=== PATIENT | male | born 1960 | race Caucasian/White ===

== ENCOUNTER 2017-08-07 19:55 | Emergency (ER) | payer BC, MEDICAID, OTHER ==
[~2017-08-07 19:55] MED LIST: AMIO200 PO; CIPR500T4 PO; CLIN1CAP6 PO; CLOP75 PO; CYCL-36 PO; ENAL2.5 PO; FURO1TAB93 PO; METO25 PO; NOVO7030P2 SQ; POTA20IN2 PO; ULTR50TA PO; ZOCO40TA PO
[2017-08-07 20:15] VITALS: BP 105/54; PULSE 77; RESP 18; TEMP 98.9; O2SAT 89
--- NOTE | 2017-08-07 22:16 | PD ---
HPI Chief Complaint: Edema Time Seen by Provider: 21:57 Travel History International Travel<30 days: No Contact w/Intl Traveler<30days: No Traveled to known affect area: No History of Present Illness HPI The patient is a 57 year old male who presents to the [facility] emergency department with a history of lower extremity edema that began approximately a month ago. The patient reports that was mild to begin with and was slightly worse in the right leg, however 2 weeks ago became worse in the left leg. He denies any injury to the area. He reports that he is on Lasix, however he does not know the dose. He is unsure why he is on this medication other than for swelling, as he denies having any history of congestive heart failure. The patient denies having any prior history of being diagnosed with sleep apnea. He denies any history of hypothyroid disorder. The patient denies having any fevers or chills. He denies any prior history of DVT or PE. The patient does report that 2 times this past week he has shortness of breath when he awakened. He reports that it began just after getting out of bed and resolved on its own. The patient has a history of snoring in the night according to his partner at the bedside. He reports that he smokes a half a pack to a pack of cigarettes daily. His primary care physician is Dr. Guthrie. On review of systems otherwise, he denies having any recent cough or congestion, neck pain, chest pain, abdominal pain, vomiting, diarrhea, urinary symptoms, or neurologic symptoms. [facility] Past Medical History Narrative Medical The patient's past medical history is significant for diabetes mellitus, coronary artery disease status post 4 vessel bypass in 2011, history of atrial fibrillation, chronic back and hip pain, and according to the electronic medical record a history of sleep apnea. Arthritis: Yes (KNEE PAIN BILAT NEEDS HIP REPLACEMENTS) Asthma: No Autoimmune Disease: No Blood Disorders: No Anxiety: No Depression: No Heart Rhythm Problems: No Cancer: No Cardiovascular Problems: Yes (CAD) High Cholesterol: Yes Chest Pain: Yes (ID'S) Congestive Heart Failure: No COPD: No Cerebrovascular Accident: No Diminished Hearing: No Endocrine: No Gastrointestinal Disorders: No GERD: No Genitourinary: No Headaches: No Hepatitis: No Hiatal Hernia: No Hypertension: Yes Immune Disorder: No Implanted Vascular Access Dvce: No Kidney Stones: No Musculoskeletal: Yes Neurologic: Yes Psychiatric: No Reproductive: No Respiratory: No Migraines: No Myocardial Infarction: Yes Renal Failure: No Seizures: No Sickle Cell Disease: No Sleep Apnea: Yes Ulcer: No Past Surgical History Narrative Surgical The patient's past surgical history is significant for knee surgery, low back surgery, coronary artery bypass grafting of 4 vessels in 2011, history of right hip replacement. Abdominal Surgery: No (backn surgery 1992) AICD: No Appendectomy: No Cardiac Surgery: Yes (STENTS IN AND ) Cholecystectomy: No Ear Surgery: No Endocrine Surgery: No Eye Surgery: No Genitourinary Surgery: No Gynecologic Surgery: No Joint Replacement: No Neurologic Surgery: Yes Oral Surgery: No Pacemaker: No Thoracic Surgery: Yes (CABG X 4 VESSELS) Other Surgery: Yes (right hip replacement) Social History Alcohol Use: Yes (MIXED DRINK MONTHLY) Tobacco Use: Yes (1 PACK A DAY) Substance Use: No Allergies-Medications (Allergen,Severity, Reaction): Coded Allergies: tetanus toxoid, adsorbed (Unverified Allergy, Unknown, 12/12/16) Reported Meds & Prescriptions Reported Meds & Active Scripts Active Reported Clindamycin Hcl (Clindamycin HCl) 300 Mg Cap 300 Mg PO TID Cipro (Ciprofloxacin HCl) 500 Mg Tab 500 Mg PO BID Lopressor (Metoprolol Tartrate) 25 Mg Tab 25 Mg PO BID Lasix (Furosemide) 40 Mg Tab 40 Mg PO BID Potassium Chloride 20 Meq Inj 20 Meq PO DAILY Ultram (Tramadol HCl) 50 Mg Tab 50 Mg PO Q8 14 Days Cordarone 200 Mg Tab (Amiodarone HCl) 200 Mg Tab 200 Mg PO DAILY Novolin 70/30 (Insulin Human Isoph/Insulin Regular) 100 Units/Ml Inj 8 Units SQ Q12 NOVOLIN NPH 8 UNITS SUBQ Q 12 HOURS Enalapril Maleate 2.5 Mg Tab 2.5 Mg PO DAILY Plavix (Clopidogrel Bisulfate) 75 Mg Tab 75 Mg PO DAILY Flexeril (Cyclobenzaprine HCl) 10 Mg Tab 10 Mg PO TID Zocor (Simvastatin) 40 Mg Tab 40 Mg PO HS Review of Systems Except as stated in HPI: all other systems reviewed are Neg General / Constitutional: No: Fever, Chills Eyes: No: Visual changes HENT: No: Headaches Cardiovascular: Positive: Edema, No: Chest Pain or Discomfort, Dyspnea on exertion Respiratory: Positive: Shortness of Breath, No: Orthopnea Gastrointestinal: No: Nausea, Vomiting, Diarrhea, Abdominal Pain Genitourinary: No: Urgency, Frequency, Dysuria Musculoskeletal: No: Pain Skin: No Rash Neurologic: No: Weakness, Focal Abnormalities, Change in Mentation, Slurred Speech, Sensory Disturbance Psychiatric: No: Depression Endocrine: No: Polydipsia Hematologic/Lymphatic: No: Easy Bruising Physical Exam Narrative General: The patient is a well-developed well-nourished male in no acute distress Head and Neck exam: Head is normocephalic atraumatic. Eyes: EOMI, pupils are equal round and reactive to light. Nose: Midline septum with pink mucous membranes Mouth: Dentition unremarkable. Moist mucus membranes. Posterior oropharynx is not erythematous. No tonsillar hypertrophy. Uvula midline. Airway patent. Neck: No palpable lymphadenopathy. No nuchal rigidity. No thyromegaly. Cardiovascular: Regular rate and rhythm without murmurs, gallops, or rubs. No pulse deficit to the extremities on simultaneous auscultation and palpation of his radial artery. Lungs: Clear to auscultation bilaterally. No wheezes, rhonchi, or rales. Abdomen: Soft, without tenderness to palpation in all 4 quadrants of the abdomen. No guarding, rebound, or rigidity. Normal bowel sounds are audible. No tenderness on palpation of McBurney's point. Negative Ibarra sign. Extremities: No clubbing or cyanosis. The patient has 1+ pitting edema bilateral lower extremities slightly worse on the left compared to the right. The patient reports calf tenderness on palpation with positive Karely's sign, however no palpable cords. No significant erythema, warmth, or tenderness on palpation. 2 + pulses in all 4 extremities. Back: No spinous process tenderness to palpation. No costovertebral angle tenderness to palpation. Neurologic Exam: Grossly nonfocal. Skin Exam: No rash noted. Intact skin that is warm and dry. Data Data Last Documented VS Vital Signs Date Time Temp Pulse Resp B/P (MAP) Pulse Ox O2 Delivery O2 Flow Rate FiO2 08/07/17 22:49 64 18 104/60 (75) 97 Nasal Cannula 2.00 08/07/17 20:15 98.9 Orders Orders Us Leg Venous Doppler Bilat (08/07/17 20:18) Electrocardiogram (08/07/17 21:59) Complete Blood Count With Diff (08/07/17 21:59) Comprehensive Metabolic Panel (08/07/17 21:59) Creatine Kinase (Cpk) (08/07/17 21:59) Ckmb (Isoenzyme) Profile (08/07/17 21:59) Troponin I (08/07/17 21:59) B-Type Natriuretic Peptide (08/07/17 21:59) Prothrombin Time / Inr (Pt) (08/07/17 21:59) C-Reactive Protein (Crp) (08/07/17 21:59) Urinalysis - C+S If Indicated (08/07/17 21:59) Magnesium (Mg) (08/07/17 21:59) Thyroid Stimulating Hormone (08/07/17 21:59) Iv Access Insert/Monitor (08/07/17 21:59) Ecg Monitoring (08/07/17 21:59) Oximetry (08/07/17 21:59) CKMB (08/07/17:18) CKMB% (08/07/17:18) Furosemide Inj (Lasix Inj) (08/08/17 00:00) Labs Laboratory Tests Test 08/07/17 22:18 08/07/17 23:55 White Blood Count 8.2 TH/MM3 Red Blood Count 5.16 MIL/MM3 Hemoglobin 15.2 GM/DL Hematocrit 45.1 % Mean Corpuscular Volume 87.3 FL Mean Corpuscular Hemoglobin 29.5 PG Mean Corpuscular Hemoglobin Concent 33.8 % Red Cell Distribution Width 15.6 % Platelet Count 197 TH/MM3 Mean Platelet Volume 10.4 FL Neutrophils (%) (Auto) 63.2 % Lymphocytes (%) (Auto) 24.0 % Monocytes (%) (Auto) 7.5 % Eosinophils (%) (Auto) 1.8 % Basophils (%) (Auto) 3.5 % Neutrophils # (Auto) 5.2 TH/MM3 Lymphocytes # (Auto) 2.0 TH/MM3 Monocytes # (Auto) 0.6 TH/MM3 Eosinophils # (Auto) 0.1 TH/MM3 Basophils # (Auto) 0.3 TH/MM3 CBC Comment DIFF FINAL Differential Comment Prothrombin Time 10.7 SEC Prothromb Time International Ratio 1.1 RATIO Blood Urea Nitrogen 26 MG/DL Creatinine 1.22 MG/DL Random Glucose 97 MG/DL Total Protein 6.9 GM/DL Albumin 3.9 GM/DL Calcium Level 8.7 MG/DL Magnesium Level 2.2 MG/DL Alkaline Phosphatase 76 U/L Aspartate Amino Transf (AST/SGOT) 30 U/L Alanine Aminotransferase (ALT/SGPT) 38 U/L Total Bilirubin 0.4 MG/DL Sodium Level 140 MEQ/L Potassium Level 4.5 MEQ/L Chloride Level 102 MEQ/L Carbon Dioxide Level 31.8 MEQ/L Anion Gap 6 MEQ/L Estimat Glomerular Filtration Rate 61 ML/MIN Total Creatine Kinase 113 U/L Creatine Kinase MB 1.5 NG/ML Troponin I LESS THAN 0.02 NG/ML C-Reactive Protein 0.71 MG/DL B-Type Natriuretic Peptide 66 PG/ML Thyroid Stimulating Hormone 3rd Gen 3.970 uIU/ML Urine Color YELLOW Urine Turbidity CLEAR Urine pH 5.5 Urine Specific [place] 1.025 Urine Protein TRACE mg/dL Urine Glucose (UA) NEG mg/dL Urine Ketones NEG mg/dL Urine Occult Blood NEG Urine Nitrite NEG Urine Bilirubin NEG Urine Urobilinogen 2.0 MG/DL Urine Leukocyte Esterase NEG Urine RBC LESS THAN 1 /hpf Urine WBC LESS THAN 1 /hpf Urine Hyaline Casts 8 /lpf Urine Mucus FEW /lpf Microscopic Urinalysis Comment CULT NOT INDICATED MDM Medical Decision Making Medical Screen Exam Complete: Yes Emergency Medical Condition: Yes Medical Record Reviewed: Yes Interpretation(s) Last Impressions Lower Extremity Ultrasound 08/07/172017 Signed Impressions: Service Date/Time: Monday, August 07, 2017 22:06 - CONCLUSION: Negative study with no evidence of deep venous thrombosis. Isaac Talamantes MD Differential Diagnosis Congestive heart failure, versus DVT, versus cor pulmonale from sleep apnea, versus hypothyroid disorder, versus hypoalbuminemia, versus valvular abnormalities of the veins of the lower extremities, versus renal failure Narrative Course During the course of the patient's emergency department visit, the patient's history, examination, and differential diagnosis were reviewed with the patient. The patient was placed on a monitoring manager with oximetry and frequent blood pressure monitoring. The patient had IV access obtained and blood work sent for analysis. The patient had an EKG done on arrival that shows a sinus rhythm with a heart rate of 67, QRS duration is 91 ms, QTC 412 ms. The patient was initially provided Lasix 20 mg IV. The patient's laboratory studies were reviewed and remarkable for CBC & BMP Diagram 08/07/17 22:18 Total Protein 6.9, Albumin 3.9, Calcium Level 8.7, Magnesium Level 2.2, Alkaline Phosphatase 76, Aspartate Amino Transf (AST/SGOT) 30, Alanine Aminotransferase (ALT/SGPT) 38, Total Bilirubin 0.4, TSH was mildly elevated. Urinalysis was unremarkable, no proteinuria. Albumin within normal limits Radiology studies were reviewed and remarkable for an ultrasound of bilateral lower extremities that shows no evidence of DVT. According to the record, the patient has been diagnosed with sleep apnea in the past, however he does not recall this. He does report that he snores. I did recommend that he get tested for sleep apnea and wears CPAP mask is lower extremity edema can be worsened/contributed to with uncontrolled pulmonary hypertension from sleep apnea. The patient additionally was instructed to wear compression stockings, elevate his legs frequently, follow-up with his primary care physician regarding his mildly elevated TSH. He was given a copy of the labs at discharge. The patient is resting comfortably and feels better, is alert and in no distress. The patient's results and examination findings were discussed with the patient. The repeat examination is unremarkable and benign. The history, exam, diagnostic testing, and current condition do not suggest any significant pathology to warrant further testing, continued ED treatment, admission, or surgical evaluation at this point. The vital signs have been stable. The patient does not have uncontrollable pain, intractable vomiting, or other significant symptoms. The patient's condition is stable and appropriate for discharge. The patient will pursue further outpatient evaluation with a primary care physician or other designated or consulting physician as indicated in the discharge instructions. The patient expressed understanding and was agreeable with this plan. Diagnosis Primary Impression: Leg edema Additional Impression: Elevated TSH Referrals: Primary Care Physician 2 days Patient Instructions: General Instructions, Leg Edema (ED) Additional Instructions: According to the record, the patient has been diagnosed with sleep apnea in the past, however he does not recall this. He does report that he snores. I did recommend that he get tested for sleep apnea and wears CPAP mask is lower extremity edema can be worsened/contributed to with uncontrolled pulmonary hypertension from sleep apnea. The patient additionally was instructed to wear compression stockings, elevate his legs frequently, follow-up with his primary care physician regarding his mildly elevated TSH. He was given a copy of the labs at discharge. Med/Other Pt SpecificInfo: No Change to Meds Disposition: 01 DISCHARGE HOME Condition: Stable Bambi Britt MD Aug 07, 2017 22:15
--- NOTE | 2017-08-07 22:34 | RADRPT ---
EXAM DATE/TIME: 08/07/2017 22:06 [facility] COMPARISON: No previous studies available for comparison. INDICATIONS : Bilateral leg swelling. MEDICAL HISTORY : Myocardial infarction. Hypercholesterolemia. Hypertension. Neck pain. Coronary artery disease. Chest pain. Sleep apnea. Arthritis. SURGICAL HISTORY : Back surgery. ENCOUNTER: Initial ACUITY: 4 - 6 days PAIN SCORE: 3/10 LOCATION: Bilateral legs. TECHNIQUE: Venous ultrasound of the left and right leg was performed from the inguinal ligament to the proximal calf. Real-time, color Doppler and spectral tracing, compression and augmentation techniques were us ed. FINDINGS: RIGHT LEG: There is normal compressibility of the deep venous system from the inguinal region to the proximal ca lf. No echogenic clot is seen in the lumen of the common femoral, femoral, popliteal, and posterior tibial veins. There is a normal response of the venous system to proximal and distal augmentation an d respiration. LEFT LEG: There is normal compressibility of the deep venous system from the inguinal region to the proximal ca lf. No echogenic clot is seen in the lumen of the common femoral, femoral, popliteal, and posterior tibial veins. There is a normal response of the venous system to proximal and distal augmentation an d respiration. CONCLUSION: Negative study with no evidence of deep venous thrombosis. Isaac Talamantes MD on August 07, 2017 at 22:31 Board Certified Radiologist. This report was verified electronically.
[2017-08-07 22:49] VITALS: BP 104/60; PULSE 64; RESP 18; O2SAT 97
[2017-08-07 23:06] LABS: AUTOMATED NEUTROPHIL # 5.2 TH/MM3 (1.8-7.7); BASOPHIL # 0.3 TH/MM3 (0-0.2); BASOPHIL % 3.5 % (0.0-2.0); EOSINOPHIL # 0.1 TH/MM3 (0-0.4); EOSINOPHIL % 1.8 % (0.0-4.0); HEMATOCRIT 45.1 % (39.0-51.0); HEMOGLOBIN 15.2 GM/DL (13.0-17.0); MEAN CELL VOLUME 87.3 FL (80.0-100.0); MEAN CORPUSCULAR HEMOGLOBIN 29.5 PG (27.0-34.0); MEAN CORPUSCULAR HGB CONC 33.8 % (32.0-36.0); MEAN PLATELET VOLUME 10.4 FL (7.0-11.0); MONO % 7.5 % (0.0-8.0); MONOCYTE # 0.6 TH/MM3 (0-0.9); NEUT % 63.2 % (16.0-70.0); PLATELET COUNT 197 TH/MM3 (150-450); RED BLOOD COUNT 5.16 MIL/MM3 (4.50-5.90); RED CELL DISTRIBUTION WIDTH 15.6 % (11.6-17.2); WHITE BLOOD COUNT 8.2 TH/MM3 (4.0-11.0)
[2017-08-07 23:12] LABS: ALBUMIN 3.9 GM/DL (3.4-5.0); AST (GOT) 30 U/L (15-37); BICARBONATE 31.8 MEQ/L (21.0-32.0); BLOOD UREA NITROGEN 26 MG/DL (7-18); C-REACTIVE PROTEIN 0.71 MG/DL (0.00-0.30); CALCIUM 8.7 MG/DL (8.5-10.1); CHLORIDE 102 MEQ/L (98-107); CREATININE 1.22 MG/DL (0.60-1.30); GLOMERULAR FILTRATION RATE 61 ML/MIN (>89); GLUCOSE,RANDOM 97 MG/DL (74-106); MAGNESIUM 2.2 MG/DL (1.5-2.5); SODIUM (NA) 140 MEQ/L (136-145)
[2017-08-07 23:21] LABS: INTERNATIONAL NORMALIZED RATIO 1.1 RATIO; PROTHROMBIN TIME - PATIENT 10.7 SEC (9.8-11.6)
[2017-08-07 23:22] LABS: ALKALINE PHOSPHATASE 76 U/L (45-117); ALT (GPT) 38 U/L (12-78); TOTAL BILIRUBIN ADULT 0.4 MG/DL (0.2-1.0); TOTAL PROTEIN 6.9 GM/DL (6.4-8.2); TROPONIN I LESS THAN 0.02 NG/ML (0.02-0.05)
[2017-08-08] MEDS ORDERED: FUROSEMIDE 20 MG/2 ML VIAL IV PUSH ONE
[2017-08-08 00:22] LABS: BILIRUBIN, URINE NEG (NEG); BLOOD, URINE NEG (NEG); GLUCOSE,URINE NEG (NEG); HYALINE CAST, URINE 8 /lpf (RARE); KETONE, URINE NEG (NEG); MUCUS URINE FEW /lpf (OCC); NITRITE,URINE NEG (NEG); PH, URINE 5.5 (5.0-8.5); URINE COLOR YELLOW (YELLW/STRAW); URINE LEUKOCYTE ESTERASE NEG (NEG)
--- NOTE | 2017-08-08 21:20 | EKG ---
Date Performed: 08/07/2017 Time Performed: 22:33:02 PTAGE: 57 years EKG: Sinus rhythm POSSIBLE LEFT ATRIAL ENLARGEMENT ABNORMAL ECG PREVIOUS TRACING : 10/18/2011 02.30 Since the previous tracing, no significant change noted DOCTOR: Robert Hughes Interpretating Date/Time 08/08/2017 21:18:40
== END 2017-08-08 01:18 | disposition home or self-care (01) ==
LOC: NEPE 19:55
DX: R60.0 Localized edema (principal); R94.6 Abnormal results of thyroid function studies; G47.30 Sleep apnea, unspecified; R06.02 Shortness of breath; R94.31 Abnormal electrocardiogram [ECG] [EKG]; F17.210 Nicotine dependence, cigarettes, uncomplicated
CPT/HCPCS: 80053; 81001; 82550; 82552; 83735; 83880; 84443; 84484; 85025; 85610; 86140; 93005; 93970; 96374; 99285; J1940